=== PATIENT | male | born 1995 | race Caucasian/White ===

== ENCOUNTER 2017-04-23 10:50 | Inpatient (IN) | payer OTHER ==
[~2017-04-23] VITALS: Ht 188 cm; Wt 89.1 kg
[2017-04-23] VITALS (7 sets, daily range): BP systolic 119–132; BP diastolic 73–88; PULSE 58–85; TEMP 36.4–37; O2SAT 96–100; Ht 188 cm; Wt 89.1 kg
[2017-04-23] MEDS ORDERED: ONDANSETRON INJ 2 MG/ML 2 ML VIAL IV STA (11:35)
[2017-04-23] MEDS ORDERED: KETOROLAC TROMETHAMINE 30 MG/ML VIAL IV STA (11:35)
[2017-04-23] MEDS ORDERED: NORT10CA4 PO (11:55)
[2017-04-23] MEDS ORDERED: DSY/150 PO (11:55)
[2017-04-23 12:04] LABS: HEMATOCRIT 38.9 % (42-52); MEAN CELL VOLUME 81.7 fL (80-100); MEAN CORPUSCULAR HEMOGLOBIN 28.4 pg (25-34); MEAN CORPUSCULAR HGB CONC 34.7 g/dl (32-36); MEAN PLATELET VOLUME 9.7 fL (7.4-10.4); PLATELET COUNT 184 K/uL (130-400); RED BLOOD COUNT 4.76 M/uL (4.7-6.1)
[2017-04-23] MEDS ORDERED: OPTIRAY 320 IV PRN (12:15)
[2017-04-23 12:21] LABS: BUN/CREATININE RATIO 20.2 (10-20); CREATININE 1.07 mg/dl (0.60-1.40); POTASSIUM 3.4 mmol/L (3.5-5.1)
[2017-04-23 12:25] LABS: ALB/GLOB RATIO 1.5 (0.9-2)
[2017-04-23 12:38] LABS: BASO % 0.1 %; BASO ABS # 0.01 K/uL (0-0.2); COMPLETE YES; IG% 0.2 %; LYMPH ABS # 0.97 K/uL (1.2-3.4); MONO % 5.6 %; NEUT % 86.1 %
--- NOTE | 2017-04-23 13:13 | DIAGNOSTIC IMAGING REPORT ---
ABDOMEN AND PELVIS CT WITH IV CONTRAST CT DOSE: 368.20 mGy.cm HISTORY: periumbilical pain TECHNIQUE: Multiaxial CT images of the abdomen and pelvis were performed following the use of intravenous contrast. A dose lowering technique was utilized adhering to the principles of ALARA. COMPARISON STUDY: None. FINDINGS: A 4 mm nodule within the base of the left lower lobe. This is of doubtful clinical significance given the patient's age. The right lung base is clear. No pneumoperitoneum. No pneumatosis. No fractures within the visualized osseous structures. Multiple nondilated fluid-filled loops of small bowel. No evidence for bowel obstruction. The liver, gallbladder, spleen, adrenal glands, pancreas, and kidneys are unremarkable. No retroperitoneal lymphadenopathy. Normal bladder. The appendix is distended and fluid-filled measuring up to 1.3 cm. This is seen within the right lower quadrant and contains a 6 mm appendicolith. There is mild periappendiceal fat stranding. No perforation or abscess at this time. This is consistent with acute appendicitis. IMPRESSION: Acute appendicitis. Electronically signed by: Vicente Fernandez M.D. 04/23/2017 1:12 PM Dictated Date/Time: 04/23/2017 1:08 PM
[2017-04-23 13:15] LABS: URINE APPEARANCE CLEAR (CLEAR); URINE BILIRUBIN NEG (NEG); URINE COLOR YELLOW; URINE NITRITE NEG (NEG); URINE PH 7.5 (4.5-7.5); URINE SPECIFIC GRAVITY 1.016 (1.000-1.030); UROBILINOGEN NEG (NEG)
[2017-04-23 13:18] LABS: MANUAL MICROSCOPIC REQUIRED? NO; REVIEW REQ? NO
[2017-04-23] MEDS ORDERED: CEFOXITIN 2000MG/60 ML D5W IV STA (13:38)
--- NOTE | 2017-04-23 13:43 | History and Physical ---
History & Physical Date Apr 23, 2017. Chief Complaint abdominal pain History of Present Illness The patient is a 22 year old male with complaints of Rt sided abd pain- ER w/u shows CT evidence of acute appendicitisw/ appendolith Additional History Hepatic Disease: No Endocrine Disorder: No Kidney Disease: No Hypertension: No Heart Disease: No Bleeding Tendencies: No Allergies Coded Allergies: No Known Allergies (Unverified , 04/23/17) Home Medications Scheduled Nortriptyline HCl (Nortriptyline HCl), 30 MG PO HS Trazodone HCl (Trazodone HCl), 75 MG PO HS Physical Examination Skin: warm/dry Eyes: sclerae normal Head: atraumatic Neck: supple Respiratory/Chest: no respiratory distress Cardiovascular: regular rate, rhythm Abdomen / GI: + pertinent finding (soft, Rt abd tenderness) Extremities: normal inspection Neurologic/Psych: alert Diagnosis acute appendicitis Plan of Treatment for laparoscopic appendectomy , possible open operation IV atbx, fluids
[2017-04-23] MEDS ORDERED: MoRPHine SULFATE 4 MG/ML 1 ML CARP\\VIAL IV PRN ×2 (13:45→16:45)
[2017-04-23] MEDS ORDERED: ONDANSETRON INJ 2 MG/ML 2 ML VIAL IV PRN ×3 (13:45→16:45)
[2017-04-23] MEDS ORDERED: MoRPHine SULFATE 2 MG/ML CARP IV PRN ×2 (13:45→16:45)
[2017-04-23] MEDS ORDERED: LACTATED RINGER'S 1000ML 1,000 ML IV SCH (13:45)
[2017-04-23] MEDS ORDERED: MEPERIDINE HCL 25 MG/ML CARP IV PRN (15:00)
[2017-04-23] MEDS ORDERED: FENTANYL CITRATE INJ 50 MCG/1 ML 2 ML VIAL IV PRN (15:00)
[2017-04-23] MEDS ORDERED: ATROPINE SULFATE 0.1 MG/ML 5ML SYR IV PRN (15:00)
[2017-04-23] MEDS ORDERED: LABETALOL HCL IV 5 MG/ML 20ML IV PRN (15:00)
[2017-04-23] MEDS ORDERED: HYDROmorphone INJ 1 MG/ML SYR IV PRN (15:00)
[2017-04-23] MEDS ORDERED: EpHEDrine SULFATE INJ 50 MG/ML AMP IV PRN (15:00)
[2017-04-23] MEDS ORDERED: LIDOCAINE HCL 2% 2 ML VIAL (20MG/ML) ONE (15:08)
[2017-04-23] MEDS ORDERED: PROPOFOL IV EMULSION 10 MG/ML 20 ML VIAL IV ONE (15:08)
[2017-04-23] MEDS ORDERED: ROCURONIUM BROMIDE 10 MG/ML 5 ML VIAL IV ONE (15:09)
[2017-04-23] MEDS ORDERED: MIDAZOLAM HCL 1 MG/ML 2ML VIAL ONE (15:10)
[2017-04-23] MEDS ORDERED: FENTANYL CITRATE INJ 50 MCG/1 ML 2 ML VIAL ONE (15:10)
[2017-04-23] MEDS ORDERED: BUPIVACAINE 0.5 % 5 MG/1 ML MPF 30ML VIAL ONE (15:40)
[2017-04-23] MEDS ORDERED: ONDANSETRON INJ 2 MG/ML 2 ML VIAL ONE (16:17)
[2017-04-23] MEDS ORDERED: DEXAMETHASONE SOD INJ 4 MG/ML VIAL ONE (16:17)
[2017-04-23] MEDS ORDERED: GLYCOPYRROLATE INJ 0.2 MG/ML VIAL ONE (16:18)
[2017-04-23] MEDS ORDERED: NEOSTIGMINE METHYLSULFATE 5 MG/5 ML SYR ONE (16:18)
--- NOTE | 2017-04-23 16:34 | [facility] Operative Report ---
Operative Report Operative Date Apr 23, 2017. Pre-Operative Diagnosis Acute appendicitis Post-Operative Diagnosis same as preoperative diagnosis Procedure(s) Performed Laparoscopic appendectomy Surgeon Dr. Barrientos Estimated Blood Loss 10ML Findings acute nonperforated appendicitis Specimens A. Appendix Anesthesia gen Complication(s) None Disposition Recovery Room / PACU I attest to the content of the Intraoperative Record and any orders documented therein. Any exceptions are noted below.
[2017-04-23] MEDS ORDERED: PROMETHAZINE HCL INJ 12.5 MG in SODIUM CHLORIDE 0.9% 50ML 50 ML IV PRN (16:45)
[2017-04-23] MEDS ORDERED: PROMETHAZINE HCL INJ 25 MG in SODIUM CHLORIDE 0.9% 50ML 50 ML IV PRN (16:45)
[2017-04-23] MEDS ORDERED: HYDROCODONE/ACETAMOPHEN 5/325MG TAB PO PRN (16:45)
--- NOTE | 2017-04-23 17:24 | EMERGENCY ROOM VISIT NOTE ---
ED Visit Note First contact with patient: 11:19 CHIEF COMPLAINT: Periumbilical Abdominal pain HISTORY OF PRESENT ILLNESS: This 22-year-old white male patient complains of gradual onset of periumbilical abdominal pain, that started mild and constant. It started in the periumbilical area and remains there. He also notes some increasing pain in the right lower quadrant. The pain is sometimes crampy in nature. No vomiting but has had nausea and loss of apetite. He is unsure if he was constipated and did drink a bottle of magnesium citrate this morning. It did not change his symptoms. No abdominal trauma. There has been no dysuria or increased urinary frequency. No back pain. He does complain of chills. He denies fevers, sweats, chest pain, or shortness of breath. Pain is 5 /10. No prior abdominal surgeries. A male friend accompanies him today. REVIEW OF SYSTEM: HEENT: No dizziness, visual problems, hearing loss, or tinnitus. There is no difficulty swallowing and no oral lesions are present. PULMONARY: No cough, shortness of breath, sputum production or hemoptysis. CARDIOVASCULAR: No chest pain, palpitations, shortness of breath or peripheral edema. GASTROINTESTINAL: No diarrhea, constipation, or vomiting. GENITOURINARY: No dysuria, frequency, urgency or nocturia. NEUROLOGIC: No weakness, muscle tenderness, epilepsy or history of neurological problems. MUSCULOSKELETAL: No history of joint tenderness/swelling. No history of arthritis or arthralgias. SKIN: No rashes or lesions. PSYCHIATRIC: Positive history of depression and mental illness. ENDOCRINE: No history of diabetes, thyroid disorders, or abnormal hair growth. PMH: Supplemental sheet was reviewed and signed. Previous surgeries: Carpal tunnel release September 2016 Medical history: Significant for IBS Current medications: Nortriptyline, trazodone Allergies: NKDA Family history: Unremarkable. Parents are living. SOCIAL HISTORY: Patient lives at home with his roommate. No tobacco use, occasional EtOH use. Unemployed. PHYSICAL EXAM: Vital Signs: Afebrile. Reviewed and filed in patient's chart. General: Well-developed, well-nourished, young white male, in obvious discomfort. No acute distress. He is sitting on a bed. Alert and oriented. Skin : Warm and dry with good turgor. No rashes or lesions. No ecchymosis or erythema. The patient is not diaphoretic. No abrasions. NECK: Supple, non- tender. HEAD: Atraumatic, without temporal or scalp tenderness. EYES: PERRL, EOMI, no discharge or injection. CHEST: Non-tender, symmetrical rise with inspiration, no retractions. LUNGS: Clear to auscultation and breath sounds equal, no wheezes, rales, or rhonchi. Good air movement. HEART: Regular and normal heart sounds, no murmurs, gallops, or rubs. Peripheral pulses are 2+. ABDOMEN: Moderate tenderness in the RLQ, as well as the periumbilical area. Normal bowel sounds. No rebound or rigidity but there is guarding. No masses or organs are felt. No flank tenderness. No distension. EXTREMITIES: Symmetrical, full range of motion, equal tone and strength. No cyanosis, edema, joint tenderness or effusion. No increasing abdominal pain with straight leg raise activity. NEUROLOGICAL: Sensory and motor functions grossly intact across the lower extremities. EMERGENCY DEPARTMENT COURSE: Data: CBC shows a mild elevation in white count. Urinalysis is normal. Chem panel is also normal. CT scan of the abdomen with IV contrast was obtained and was read by radiology. It is positive for an acute appendicitis. DIAGNOSIS: Acute Appendicitis TREATMENT PLAN: Patient was educated regarding today's findings. Conservative care measures were discussed. IV access was established. Labs were obtained. He did require Toradol 30 mg IV for pain control and Zofran 4 mg IV for nausea control while in the ED. Lab work shows mildly elevated white count. CT scan was positive for acute appendicitis. I did speak with Dr. Barrientos. Please see his dictation for final management and outcome. He will take the patient to the operating room for an appendectomy tonight. Patient was given 2 g of Mefoxin IV preop. Patient remained stable while in the ED. He remained nothing by mouth. Current/Historical Medications Scheduled Nortriptyline HCl (Nortriptyline HCl), 30 MG PO HS Trazodone HCl (Trazodone HCl), 75 MG PO HS Allergies Coded Allergies: No Known Allergies (Unverified , 04/23/17) Vital Signs Date Time Temp Pulse Resp B/P (MAP) Pulse Ox O2 Delivery O2 Flow Rate FiO2 04/23/17 17:20 37 56 16 120/82 99 Room Air 04/23/17 17:10 51 16 114/80 100 Room Air 04/23/17 17:00 53 16 119/82 100 Nasal Cannula 4 04/23/17 16:50 36.2 53 14 121/79 100 Nasal Cannula 4 04/23/17 16:42 36.2 72 14 120/82 100 Nasal Cannula 4 04/23/17 14:26 65 16 115/76 98 Room Air 04/23/17 12:30 62 18 124/76 98 Room Air 04/23/17 11:05 36.8 66 18 137/93 100 Room Air Laboratory Results 04/23/17 11:49 Red Blood Count 4.76, Mean Corpuscular Volume 81.7, Mean Corpuscular Hemoglobin 28.4, Mean Corpuscular Hemoglobin Concent 34.7, Mean Platelet Volume 9.7, Neutrophils (%) (Auto) 86.1, Lymphocytes (%) (Auto) 8.0, Monocytes (%) (Auto) 5.6, Eosinophils (%) (Auto) 0.0, Basophils (%) (Auto) 0.1, Neutrophils # (Auto) 10.41, Lymphocytes # (Auto) 0.97, Monocytes # (Auto) 0.68, Eosinophils # (Auto) 0.00, Basophils # (Auto) 0.01 04/23/17 11:49 Test 04/23/17 11:49 04/23/17 13:02 White Blood Count 12.10 K/uL (4.8-10.8) Red Blood Count 4.76 M/uL (4.7-6.1) Hemoglobin 13.5 g/dL (14.0-18.0) Hematocrit 38.9 % (42-52) Mean Corpuscular Volume 81.7 fL (80-100) Mean Corpuscular Hemoglobin 28.4 pg (25-34) Mean Corpuscular Hemoglobin Concent 34.7 g/dl (32-36) Platelet Count 184 K/uL (130-400) Mean Platelet Volume 9.7 fL (7.4-10.4) Neutrophils (%) (Auto) 86.1 % Lymphocytes (%) (Auto) 8.0 % Monocytes (%) (Auto) 5.6 % Eosinophils (%) (Auto) 0.0 % Basophils (%) (Auto) 0.1 % Neutrophils # (Auto) 10.41 K/uL (1.4-6.5) Lymphocytes # (Auto) 0.97 K/uL (1.2-3.4) Monocytes # (Auto) 0.68 K/uL (0.11-0.59) Eosinophils # (Auto) 0.00 K/uL (0-0.5) Basophils # (Auto) 0.01 K/uL (0-0.2) RDW Standard Deviation 39.2 fL (36.4-46.3) RDW Coefficient of Variation 13.1 % (11.5-14.5) Immature Granulocyte % (Auto) 0.2 % Immature Granulocyte # (Auto) 0.03 K/uL (0.00-0.02) Anion Gap 9.0 mmol/L (3-11) Est Creatinine Clear Calc Drug Dose 124.9 ml/min Estimated GFR () 112.8 Estimated GFR (Non- 97.3 BUN/Creatinine Ratio 20.2 (10-20) Calcium Level 9.0 mg/dl (8.5-10.1) Total Bilirubin 0.5 mg/dl (0.2-1) Aspartate Amino Transf (AST/SGOT) 15 U/L (15-37) Alanine Aminotransferase (ALT/SGPT) 25 U/L (12-78) Alkaline Phosphatase 81 U/L (45-117) Total Protein 7.5 gm/dl (6.4-8.2) Albumin 4.5 gm/dl (3.4-5.0) Globulin 3.0 gm/dl (2.5-4.0) Albumin/Globulin Ratio 1.5 (0.9-2) Urine Color YELLOW Urine Appearance CLEAR (CLEAR) Urine pH 7.5 (4.5-7.5) Urine Specific [place] 1.016 (1.000-1.030) Urine Protein NEG (NEG) Urine Glucose (UA) NEG (NEG) Urine Ketones NEG (NEG) Urine Occult Blood NEG (NEG) Urine Nitrite NEG (NEG) Urine Bilirubin NEG (NEG) Urine Urobilinogen NEG (NEG) Urine Leukocyte Esterase NEG (NEG) Medications Administered Medications (Trade) Dose Ordered Sig/Christianne Route Start Time Stop Time Status Last Admin Dose Admin Ondansetron HCl (Zofran Inj) 4 mg NOW STAT IV 04/23/17 11:35 04/23/17 11:38 DC 04/23/17 11:35 4 MG Ketorolac Tromethamine (Toradol Inj) 30 mg NOW STAT IV 04/23/17 11:35 04/23/17 11:38 DC 04/23/17 11:35 30 MG Cefoxitin Sodium (Mefoxin 2000mg/ 60 ml D5W) 2,000 mg NOW STAT IV 04/23/17 13:38 04/23/17 13:39 DC 04/23/17 13:38 2,000 MG Bupivacaine HCl (Marcaine 0.5% MPF Inj) 30 ml STK-MED ONCE .ROUTE 04/23/17 15:40 04/23/17 15:41 DC 04/23/17 15:40 8 ML Departure Information Referrals No Doctor, Assigned (PCP) Patient Instructions [facility]
--- NOTE | 2017-04-23 17:27 | Anesthesiology Progress Note ---
Anesthesia Post Op Note Date & Time Apr 23, 2017 at 17:26 Vital Signs Pain Intensity: 0 Vital Signs Past 12 Hours Date Time Temp Pulse Resp B/P (MAP) Pulse Ox O2 Delivery O2 Flow Rate FiO2 04/23/17 17:20 37 56 16 120/82 99 Room Air 04/23/17 17:10 51 16 114/80 100 Room Air 04/23/17 17:00 53 16 119/82 100 Nasal Cannula 4 04/23/17 16:50 36.2 53 14 121/79 100 Nasal Cannula 4 04/23/17 16:42 36.2 72 14 120/82 100 Nasal Cannula 4 04/23/17 14:26 65 16 115/76 98 Room Air 04/23/17 12:30 62 18 124/76 98 Room Air 04/23/17 11:05 36.8 66 18 137/93 100 Room Air Notes Mental Status: alert / awake / arousable, participated in evaluation Pt Amnestic to Procedure: Yes Nausea / Vomiting: adequately controlled Pain: adequately controlled Airway Patency, RR, SpO2: stable & adequate BP & HR: stable & adequate Hydration State: stable & adequate Anesthetic Complications: no major complications apparent
--- NOTE | 2017-04-23 18:15 | OPERATIVE REPORT ---
DATE OF OPERATION: 04/23/2017 NAME OF OPERATION: Laparoscopic appendectomy. PREOPERATIVE DIAGNOSIS: Acute appendicitis. POSTOPERATIVE DIAGNOSIS: Same. STAFF SURGEON: Dr. Rah Barrientos. ANESTHESIA: General. DESCRIPTION OF PROCEDURE: The patient was brought into the operating room and placed on the operating room table in supine position. Pneumatic stockings and orogastric tube were placed. His abdomen was prepped and draped in the usual fashion. 0.5% plain Marcaine was used to anesthetize all incisions. Incision was made above the umbilicus, carrying dissection down to the fascia, placing a Veress needle, and producing pneumoperitoneum. An 11-mm port was placed at this level and then the camera passed. Under visualization, a 5-mm port was placed suprapubically and then, a 12-mm port placed in the left lower quadrant. The appendix was lateral. There were adhesions of the cecum to the lateral wall, which had to be taken down and then the appendix was also adherent to the retroperitoneum. These were taken down. The mesoappendix was transected using an Endo-RAYA stapler. The base of the appendix was transected using and Endo-RAYA stapler. Small amount of mesentery left, clipped using a 10-mm clipper. The appendix was placed in an Endobag and then removed through the 12-mm site. At this point, after appropriate hemostasis and irrigation, all ports were removed. The fascial defects at the umbilicus and left lower quadrant closed using 0 Vicryl suture. Skin reapproximated using subcuticular 4-0 Monocryl. Dermabond used in the suprapubic and umbilical areas and Steri-Strips on the left lower quadrant. The patient was transferred to recovery room in stable condition. I attest to the content of the Intraoperative Record and any orders documented therein. Any exception s are noted below.
[2017-04-23] MEDS: LACTATED RINGER'S 1000ML 1,000 ML IV SCH (18:24)
[2017-04-23] MEDS ORDERED: HYDROmorphone INJ 0.5 MG/0.5 ML SYR IV PRN (19:00)
[2017-04-23] MEDS: HYDROmorphone INJ 1 MG/ML SYR IV PRN ×2 (19:16→22:25)
[2017-04-23] MEDS: CEFOXITIN IV 1,000 MG in DEXTROSE 5% 50ML 50 ML IV SCH (20:17)
[2017-04-24] MEDS: LACTATED RINGER'S 1000ML 1,000 ML IV SCH (02:10)
[2017-04-24] MEDS: HYDROCODONE/ACETAMOPHEN 5/325MG TAB PO PRN ×3 (03:29→13:09)
[2017-04-24] MEDS: CEFOXITIN IV 1,000 MG in DEXTROSE 5% 50ML 50 ML IV SCH ×2 (03:29→12:11)
[2017-04-24 03:32] VITALS: BP 113/61; PULSE 58; TEMP 37; O2SAT 97
--- NOTE | 2017-04-24 06:18 | Surgery Progress Note ---
Surgery Progress Note Date of Service Apr 24, 2017. Subjective no acute chgs- doing well- some pain Objective Vital Signs: Date Time Temp Pulse Resp B/P (MAP) Pulse Ox O2 Delivery O2 Flow Rate FiO2 04/24/17 03:32 37.0 58 16 113/61 (78) 97 Room Air 04/24/17 00:15 Room Air 04/23/17 22:57 37.0 75 16 125/73 (90) 97 Room Air 04/23/17 22:27 Room Air 04/23/17 20:30 36.8 85 18 127/76 (93) 96 Room Air 04/23/17 19:30 36.7 79 18 126/84 (98) 99 Room Air 04/23/17 18:30 36.5 72 18 132/88 (103) 100 Room Air 04/23/17 18:06 Room Air 04/23/17 18:00 36.4 58 16 119/77 (91) 100 Room Air 04/23/17 17:43 37.0 16 120/82 Room Air 04/23/17 17:20 37 56 16 120/82 99 Room Air 04/23/17 17:10 51 16 114/80 100 Room Air 04/23/17 17:00 53 16 119/82 100 Nasal Cannula 4 04/23/17 16:50 36.2 53 14 121/79 100 Nasal Cannula 4 04/23/17 16:42 36.2 72 14 120/82 100 Nasal Cannula 4 04/23/17 14:26 65 16 115/76 98 Room Air 04/23/17 12:30 62 18 124/76 98 Room Air 04/23/17 11:05 36.8 66 18 137/93 100 Room Air General Appearance: no apparent distress Respiratory/Chest: no respiratory distress Abdomen: soft Incision(s): intact Laboratory Results: Results Past 24 Hours Test 04/23/17 11:49 04/23/17 13:02 Range/Units White Blood Count 12.10 4.8-10.8 K/uL Red Blood Count 4.76 4.7-6.1 M/uL Hemoglobin 13.5 14.0-18.0 g/dL Hematocrit 38.9 42-52 % Mean Corpuscular Volume 81.7 80-100 fL Mean Corpuscular Hemoglobin 28.4 25-34 pg Mean Corpuscular Hemoglobin Concent 34.7 32-36 g/dl Platelet Count 184 130-400 K/uL Mean Platelet Volume 9.7 7.4-10.4 fL Neutrophils (%) (Auto) 86.1 % Lymphocytes (%) (Auto) 8.0 % Monocytes (%) (Auto) 5.6 % Eosinophils (%) (Auto) 0.0 % Basophils (%) (Auto) 0.1 % Neutrophils # (Auto) 10.41 1.4-6.5 K/uL Lymphocytes # (Auto) 0.97 1.2-3.4 K/uL Monocytes # (Auto) 0.68 0.11-0.59 K/uL Eosinophils # (Auto) 0.00 0-0.5 K/uL Basophils # (Auto) 0.01 0-0.2 K/uL RDW Standard Deviation 39.2 36.4-46.3 fL RDW Coefficient of Variation 13.1 11.5-14.5 % Immature Granulocyte % (Auto) 0.2 % Immature Granulocyte # (Auto) 0.03 0.00-0.02 K/uL Sodium Level 138 136-145 mmol/L Potassium Level 3.4 3.5-5.1 mmol/L Chloride Level 101 98-107 mmol/L Carbon Dioxide Level 28 21-32 mmol/L Anion Gap 9.0 3-11 mmol/L Blood Urea Nitrogen 22 7-18 mg/dl Creatinine 1.07 0.60-1.40 mg/dl Est Creatinine Clear Calc Drug Dose 124.9 ml/min Estimated GFR () 112.8 Estimated GFR (Non- 97.3 BUN/Creatinine Ratio 20.2 10-20 Random Glucose 110 70-99 mg/dl Calcium Level 9.0 8.5-10.1 mg/dl Total Bilirubin 0.5 0.2-1 mg/dl Aspartate Amino Transf (AST/SGOT) 15 15-37 U/L Alanine Aminotransferase (ALT/SGPT) 25 12-78 U/L Alkaline Phosphatase 81 45-117 U/L Total Protein 7.5 6.4-8.2 gm/dl Albumin 4.5 3.4-5.0 gm/dl Globulin 3.0 2.5-4.0 gm/dl Albumin/Globulin Ratio 1.5 0.9-2 Urine Color YELLOW Urine Appearance CLEAR CLEAR Urine pH 7.5 4.5-7.5 Urine Specific [place] 1.016 1.000-1.030 Urine Protein NEG NEG Urine Glucose (UA) NEG NEG Urine Ketones NEG NEG Urine Occult Blood NEG NEG Urine Nitrite NEG NEG Urine Bilirubin NEG NEG Urine Urobilinogen NEG NEG Urine Leukocyte Esterase NEG NEG Assessment & Plan 04/24/17- s/p lap appendectomy- adv diet, pain control assess for possible d/c later today
[2017-04-24 07:12] VITALS: BP 122/73; PULSE 57; TEMP 36.6; O2SAT 99
[2017-04-24] MEDS ORDERED: INFLUENZA VIRUS QUAD VACCINE 0.5 ML SYR IM. ONE (08:00)
[2017-04-24] MEDS ORDERED: INFLUENZA ADMINISTRATION CHARGE ONE (08:00)
[2017-04-24 10:41] VITALS: BP 122/73; PULSE 57; TEMP 36.6; O2SAT 99
[2017-04-24 10:42] VITALS: BP 126/61; PULSE 72; TEMP 36.9; O2SAT 99
[2017-04-24] MEDS ORDERED: CIPR-255 PO (12:29)
[2017-04-24] MEDS ORDERED: HYDR-5688 PO ×2 (12:29→12:41)
--- NOTE | 2017-04-24 12:33 | Discharge Instructions ---
Discharge Instructions Date of Service Apr 24, 2017. Admission Reason for Admission: Acute Appendicitis Discharge Discharge Diagnosis / Problem: laparoscopic appendectomy Discharge Goals Goal(s): Decrease discomfort Activity Recommendations Activity Limitations: as noted below Lifting Limitations: no more than 10 pounds Shower/Bathe: no limitations Driving or Machine Use: resume 3 days after discharge . Instructions / Follow-Up Instructions / Follow-Up Dr. Barrientos's office in 2 weeks, call to schedule [phone], [facility] [place] [address] [facility] Current Hospital Diet Patient's current hospital diet: Regular Diet Discharge Diet Recommended Diet: Regular Diet Procedures Procedures Performed: Laparoscopic appendectomy Pending Studies Studies pending at discharge: no School Instructions Return To School: 5 days Medical Emergencies . Who to Call and When: Medical Emergencies: If at any time you feel your situation is an emergency, please call 911 immediately. . Non-Emergent Contact Non-Emergency issues call your: Surgeon Call Non-Emergent contact if: you have a fever, temperature is above 101.5, your pain is not controlled, wound has increased redness, you have any medication questions . "Provider Documentation" section prepared by Hernesto Napoles. . VTE Core Measure Inpt VTE Proph given/why not?: SCD's [place] Drug Monitoring Program Search Results: no issues identified
[2017-04-24] MEDS ORDERED: CIPR1TAB10 PO (12:41)
== END 2017-04-24 13:26 | disposition home or self-care (01) | DRG 343 ==
LOC: C.EDB 10:52 → C.3E 16:37 → ENRESERV 17:05
PROVIDERS: ADMIT Surgery; ATTEND Surgery
PROC: 0DTJ4ZZ Resection of Appendix, Percutaneous Endoscopic Approach (ICD-10-PCS; principal; 2017-04-23 14:52)
DX: K35.80 Unspecified acute appendicitis (principal); K38.1 Appendicular concretions; F32.9 Major depressive disorder, single episode, unspecified; Z23 Encounter for immunization; Z79.899 Other long term (current) drug therapy